=== PATIENT | male | born 1965 | race Caucasian/White ===

== ENCOUNTER 2022-03-15 10:09 | Emergency (ER) | payer BC ==
[2022-03-15 10:20] VITALS: BP 160/89; PULSE 70
[2022-03-15 11:05] LABS: ANION GAP 12.1 mmol/L (5-15)
[2022-03-15] MEDS ORDERED: Iopamidol 755 Mg/ML 100 ML Bottle IV ONE (11:49)
[2022-03-15] MEDS ORDERED: Sodium Chloride 0.9% 50 ML IV SCH (12:00)
== END 2022-03-15 13:02 | disposition home or self-care (01) ==
LOC: KA.ED 10:09
DX: K42.9 Umbilical hernia without obstruction or gangrene (principal); I25.10 Atherosclerotic heart disease of native coronary artery without angina pectoris; I10 Essential (primary) hypertension; K21.9 Gastro-esophageal reflux disease without esophagitis; Z79.899 Other long term (current) drug therapy
CPT/HCPCS: 36415; 74177; 80053; 83605; 85025; 99283; 99284; Q9967